=== PATIENT | female | born 1985 | race Caucasian/White ===

== ENCOUNTER 2017-02-27 06:37 | Inpatient (IN) | payer MEDICAID ==
[~2017-02-27] VITALS: Ht 152.4 cm; Wt 77.3 kg
[2017-02-27 08:31] VITALS: BP 116/63; PULSE 87
[2017-02-27] MEDS ORDERED: PRENAT PO (08:33)
--- NOTE | 2017-02-27 08:53 | RADRPT ---
PROCEDURE: OB ultrasound for biophysical profile CLINICAL INDICATION: Spontaneous rupture of membranes TECHNIQUE: Multiple sonographic images of the pelvis were obtained. Transabdominal view of the gr avid uterus are available for review. The images were reviewed on a PACS workstation. COMPARISON: None FINDINGS: breathing movement = 2/2 tone = 2/2 motion = 2/2 CORNELL = 2/2 CORNELL = 10.9 cm Single live intrauterine with cardiac activity. heart rate equals 137 beats p er minute. Presentation is cephalic. The placenta is anterior. IMPRESSION: 1. Single viable intrauterine gestation. 2. Biophysical profile = 88. 3. CORNELL = 10.9 cm. RPTAT: KK .David Mattson MD, MD Date Time Electronically viewed and signed by .David Mattson MD, MD on 02/27/2017 08:53 .B/
[2017-02-27] MEDS ORDERED: MISOPROSTOL 200 MCG TAB PR PRN (10:00)
[2017-02-27] MEDS ORDERED: LACTATED RINGER'S 1,000 ML IV PRN (10:00)
[2017-02-27] MEDS ORDERED: METHYLERGONOVINE 0.2 MG INJ IM PRN (10:00)
[2017-02-27] MEDS ORDERED: CARBOPROST 250 MCG INJ IM PRN (10:00)
[2017-02-27] MEDS ORDERED: BUTORPHANOL 2 MG INJ IV PRN ×2 (10:00)
[2017-02-27] MEDS ORDERED: OXYTOCIN 30 UNITS/LR 500 ML IV PRN (10:00)
[2017-02-27] MEDS ORDERED: LIDOCAINE 1% (MPF) 30 ML INJ INJ PRN (10:00)
[2017-02-27] MEDS: LACTATED RINGER'S 1,000 ML IV SCH ×3 (10:44→20:55)
[2017-02-27] MEDS ORDERED: AMPICILLIN 2 GM/NS (PMX) 100 ML ONE (11:51)
[2017-02-27 11:53] LABS: BASOPHILS % 0.3 % (0.0-2.0); EOSINOPHILS # 0.3 10^3/ul (0.0-0.5); EOSINOPHILS % 2.4 % (0.0-7.0); HEMATOCRIT 37.9 % (37.0-47.0); HEMOGLOBIN 13.1 g/dl (12.0-16.0); LYMPHOCYTES # 1.8 10^3/ul (0.8-2.9); LYMPHOCYTES % 17.2 % (15.0-51.0); MEAN CORPUSCULAR HEMOGLOBIN 30.6 pg (29.0-33.0); MEAN CORPUSCULAR HGB CONC 34.6 g/dl (32.0-37.0); MEAN CORPUSCULAR VOLUME 88.6 fl (82.0-101.0); MEAN PLATELET VOLUME 12.3 fl (7.4-10.4); MONOCYTE # 0.5 10^3/ul (0.3-0.9); MONOCYTES % 4.9 % (0.0-11.0); NEUTROPHIL # 7.8 10^3/ul (1.6-7.5); NEUTROPHILS % 74.8 % (39.0-77.0); PLATELET COUNT 191 10^3/UL (140-415); RED BLOOD COUNT 4.28 10^6/ul (4.20-5.40); RED CELL DISTRIBUTION WIDTH 13.9 % (11.5-14.5); WHITE BLOOD COUNT 10.5 10^3/ul (4.8-10.8)
[2017-02-27] MEDS ORDERED: AMPICILLIN 2 GM/NS (PMX) 100 ML IVPB ONE (12:00)
[2017-02-27] MEDS ORDERED: IBUPROFEN 600 MG TAB PO PRN (12:00)
[2017-02-27 12:11] LABS: INR 0.95; PROTIME 12.7 Sec (12.2-14.2)
[2017-02-27 12:12] LABS: PARTIAL THROMBOPLASTIN TIME 28.8 Sec (25.0-35.0)
[2017-02-27] MEDS ORDERED: OXYTOCIN 30 UNITS/LR 500 ML IV SCH ×2 (21:00)
[2017-02-27] MEDS ORDERED: OXYTOCIN 30 UNITS/LR 500 ML IVPB ONE (21:00)
--- NOTE | 2017-02-28 03:50 | HP ---
Date/Time of Note Date/Time of Note DATE: 02/28/17 TIME: 03:43 OB - History Hx of Present Free Text/Dictation 31 y.o primigravida at 39w4d in labor with intact membrane VE 3-4 /90% / -2; EFM uc 2-5min afmitted for expectant management Chief Complaint: U.C's Estimated Due Date: Mar 02, 2017 : 1 Para: 0 Spontaneous : 0 Therapeutic : 0 Care: Limited Care Obstetrical Complications: None Medical Complications: None Past Family/Social History * Past Medical, Surgical, Family and Obstetric Histories reviewed from chart. Blood Type: A+ Rubella: immune RPR/VDRL: Negative GBS Status: Unknown HBsAG: Negative OB Admission Exam Vital Signs Vital Signs Vital Signs Date Time Temp Pulse Resp B/P Pulse Ox O2 Delivery O2 Flow Rate FiO2 02/27/17 08:31 98.1 87 116/63 Physical Exam HEENT: WNL Heart: Rhythm Normal Lungs: Clear, Equal Abdomen: WNL Extremities: Normal Reflexes: Normal Cervical Dilatation: 3cm Effacement: Other (90%) Station: -2 Membranes: Intact Amniotic Fluid: Unevaluable Heart Rate: 130's Accelerations: Accelerations Present Decelerations: Variable Decelerations Varibility: Moderate Contractions on Admission: < 5 Minutes Apart Intensity: Moderate Last 72 hours Lab Results CBC & BMP 02/27/17 11:17 OB Assessment/Plan Reason for admission: active labor Other Assessment: IUP 39w4d in labor i Plan: Expectant Management AFUA HOOVER MD Feb 28, 2017 03:49
--- NOTE | 2017-02-28 03:55 | LDN ---
Date/Time of Note Date/Time of Note DATE: 02/28/17 TIME: 03:52 Delivery Summary normal vvaginal delivery over MLE Weeks of Gestation 38w4d Placenta Delivered: Spontaneously Meconium: none Episiotomy: Yes Laceration repair: 00ch gut Anesthesia type: Local Sponge & Needle done & correct: Yes All needle counts correct: Yes Any foreign bodies felt in the: No Problems: Delivery Information Sex Sex: male Apgars 1 Minute: 9 5 Minute: 9 Suctioning Nose & mouth suctioned at rekha: Yes Delee suction performed: No Umbilical Cord Umbilical cord with: 3 Vessels Cord presentations: nuchal cord Nuchal cord present X: 1 Cord Blood was obtained: Yes Mother & Baby Disposition Disposition Mom & Baby to Maternity; Good: Yes Mom transferred to: Other () Baby to NICU: No AFUA HOOVER MD Feb 28, 2017 03:55
[2017-02-28] MEDS ORDERED: OXYTOCIN 30 UNITS/LR 500 ML IV PRN (04:00)
[2017-02-28] MEDS ORDERED: METHYLERGONOVINE 0.2 MG INJ IM PRN (04:00)
[2017-02-28] MEDS ORDERED: OXYCODONE/ASPIRIN (4.88/325) TAB PO PRN ×2 (04:00)
[2017-02-28] MEDS ORDERED: MISOPROSTOL 200 MCG TAB PR PRN (04:00)
[2017-02-28] MEDS ORDERED: CARBOPROST 250 MCG INJ IM PRN (04:00)
[2017-02-28] MEDS ORDERED: WITCH HAZEL/GLYCERIN PAD PR PRN (04:00)
[2017-02-28] MEDS ORDERED: BENZOCAINE 20% 56 ML SPRAY TOP PRN (04:00)
[2017-02-28] MEDS ORDERED: ZOLPIDEM 5 MG TAB PO PRN (04:00)
[2017-02-28] MEDS ORDERED: LANOLIN 7 GM TUBE TOP PRN (04:00)
[2017-02-28 04:10] VITALS: BP 106/56; PULSE 102; RESP 18
[2017-02-28] MEDS: IBUPROFEN 600 MG TAB PO SCH ×3 (05:38→17:08)
[2017-02-28 07:30] VITALS: BP 112/59; PULSE 103; RESP 18
[2017-02-28] MEDS: SENNA/DOCUSATE NA (8.6MG/50MG) TAB PO SCH ×2 (08:12→21:37)
[2017-02-28 16:00] VITALS: BP 112/68; PULSE 104; RESP 18
[2017-02-28 20:00] VITALS: BP 98/63; PULSE 100; RESP 18
[2017-03-01] MEDS: IBUPROFEN 600 MG TAB PO SCH ×4 (00:12→17:27)
[2017-03-01 05:10] VITALS: BP 101/55; PULSE 95; RESP 18
[2017-03-01 06:32] LABS: BASOPHILS % 0.3 % (0.0-2.0); EOSINOPHILS # 0.2 10^3/ul (0.0-0.5); EOSINOPHILS % 1.3 % (0.0-7.0); HEMOGLOBIN 9.4 g/dl (12.0-16.0); LYMPHOCYTES # 2.7 10^3/ul (0.8-2.9); LYMPHOCYTES % 22.5 % (15.0-51.0); MEAN CORPUSCULAR HEMOGLOBIN 30.2 pg (29.0-33.0); MEAN CORPUSCULAR HGB CONC 33.6 g/dl (32.0-37.0); MEAN PLATELET VOLUME 12.2 fl (7.4-10.4); MONOCYTE # 0.8 10^3/ul (0.3-0.9); MONOCYTES % 6.5 % (0.0-11.0); NEUTROPHIL # 8.4 10^3/ul (1.6-7.5); PLATELET COUNT 170 10^3/UL (140-415); RED BLOOD COUNT 3.11 10^6/ul (4.20-5.40); RED CELL DISTRIBUTION WIDTH 14.5 % (11.5-14.5); WHITE BLOOD COUNT 12.2 10^3/ul (4.8-10.8)
[2017-03-01 07:45] VITALS: BP 98/51; PULSE 83; RESP 18
[2017-03-01] MEDS: SENNA/DOCUSATE NA (8.6MG/50MG) TAB PO SCH ×2 (08:25→21:27)
[2017-03-01 16:00] VITALS: BP 100/51; PULSE 79
--- NOTE | 2017-03-01 17:13 | QN ---
Documentation Comment ppd1 pt doing well vss exam wnl a/p ppd1 continue care MATIAS PARISI MD Mar 01, 2017 17:13
[2017-03-01 20:00] VITALS: BP 108/60; PULSE 91; RESP 18
--- NOTE | 2017-03-01 21:55 | DS ---
Date/Time of Note Date/Time of Note DATE: 03/01/17 TIME: 21:54 Discharge Summary Admission/Discharge Info Admit Date/Time Feb 27, 2017 at 10:17 Discharge Date/Time TERM PREG Patient Condition: Good Hospital Course UNREMARKABLE Home Meds Reported Medications Multivit/Min/Fol Ac/Iron/Pren* ( S*) 1 Tab Tab, 1 TAB PO DAILY, TAB 02/27/17 Primary Care Provider Care Physician No Primary Pending Labs Laboratory Tests Test 03/01/17 05:59 White Blood Count 12.210^3/ul (4.8-10.8) Red Blood Count 3.1110^6/ul (4.20-5.40) Hemoglobin 9.4g/dl (12.0-16.0) Hematocrit 28.0% (37.0-47.0) Mean Corpuscular Volume 90.0fl (82.0-101.0) Mean Corpuscular Hemoglobin 30.2pg (29.0-33.0) Mean Corpuscular Hemoglobin Concent 33.6g/dl (32.0-37.0) Red Cell Distribution Width 14.5% (11.5-14.5) Platelet Count 27933^3/UL (140-415) Mean Platelet Volume 12.2fl (7.4-10.4) Neutrophils % 69.0% (39.0-77.0) Lymphocytes % 22.5% (15.0-51.0) Monocytes % 6.5% (0.0-11.0) Eosinophils % 1.3% (0.0-7.0) Basophils % 0.3% (0.0-2.0) Nucleated Red Blood Cells % 0.0/100WBC (0.0-0.0) Neutrophils # 8.410^3/ul (1.6-7.5) Lymphocytes # 2.710^3/ul (0.8-2.9) Monocytes # 0.810^3/ul (0.3-0.9) Eosinophils # 0.210^3/ul (0.0-0.5) Basophils # 0.010^3/ul (0.0-0.1) Nucleated Red Blood Cells # 0.010^3/ul (0.0-0.0) DEVANTE RIVERA MD Mar 01, 2017 21:55
[2017-03-02] MEDS: IBUPROFEN 600 MG TAB PO SCH ×3 (00:06→12:10)
[2017-03-02 04:00] VITALS: BP 126/71; PULSE 91; RESP 20
[2017-03-02 07:45] VITALS: BP 101/60; PULSE 97; RESP 18
[2017-03-02] MEDS ORDERED: DIPHTH/TET/ACEL PERTUSS (ADULT) 0.5 ML VIAL IM* ONE (09:00)
[2017-03-02] MEDS: SENNA/DOCUSATE NA (8.6MG/50MG) TAB PO SCH (09:02)
== END 2017-03-02 15:30 | disposition home or self-care (01) | DRG 775 ==
LOC: L-D 06:37 → OBT 06:37 → L-D 10:17 → PP1 02-28 04:09
PROVIDERS: ADMIT Obstetrics & Gynecology; ATTEND Obstetrics & Gynecology
PROC: 10E0XZZ Delivery of Products of Conception, External Approach (ICD-10-PCS; principal; 2017-02-28)
PROC: 0W8NXZZ Division of Female Perineum, External Approach (ICD-10-PCS; 2017-02-28)
PROC: 3E0234Z Introduction of Serum, Toxoid and Vaccine into Muscle, Percutaneous Approach (ICD-10-PCS; 2017-03-02)
DX: O76 Abnormality in fetal heart rate and rhythm complicating labor and delivery (principal); Z3A.39 39 weeks gestation of pregnancy; Z37.0 Single live birth; Z23 Encounter for immunization
CPT/HCPCS: 76818; 84112; 85025; 85610; 85730; 86592; 86900; 86901; 87340; 90715; 99464; G0463; J0290; J0595; J2590; J7120